=== PATIENT | female | born 1955 | race Caucasian/White ===

== ENCOUNTER 2022-02-16 13:25 | Emergency (ER) | payer SELFPAY ==
[~2022-02-16] VITALS: Ht 162.6 cm; Wt 72.0 kg
[2022-02-16] MEDS ORDERED: IBUP-2029 MT (18:45)
[2022-02-16] MEDS ORDERED: HYDR-4001 MT (18:45)
[2022-02-16] MEDS ORDERED: HYDROCODONE/ACETAMINOPHEN 5/325MG TABLET PO ONE (18:45)
[2022-02-16 19:59] VITALS: BP 112/65
== END 2022-02-16 20:02 | disposition home or self-care (01) ==
LOC: ER 14:16
DX: S92.302A Fracture of unspecified metatarsal bone(s), left foot, initial encounter for closed fracture (principal); Z98.890 Other specified postprocedural states; Z88.2 Allergy status to sulfonamides; X58.XXXA Exposure to other specified factors, initial encounter; Y93.9 Activity, unspecified; Y92.89 Other specified places as the place of occurrence of the external cause; Y99.8 Other external cause status
CPT/HCPCS: 73610; 73630; 99284